=== PATIENT | male | born 1995 | race Caucasian/White ===

== ENCOUNTER 2018-05-23 20:32 | Emergency (ER) | payer OTHER, MEDICAID, SELFPAY ==
[2018-05-23 20:53] VITALS: BP 159/90; PULSE 64; RESP 18; TEMP 36.7; O2SAT 99
--- NOTE | 2018-05-23 21:32 | DI.RAD.S_ITS ---
PROCEDURE: XR CHEST 2V INDICATIONS: chest pain TECHNIQUE: 2 views of the chest were acquired. COMPARISON: formerly [facility], CHEST 2 VIEW, 10/17/2010, 15:03. formerly [facility], CHEST 2 VIEW, 02/27/2011, 14:06. FINDINGS: Surgical changes and devices: None. Lungs and pleura: No pleural effusions or pneumothorax. Lungs are clear. Mediastinum: Mediastinal contours are normal. Heart size is normal. Bones and chest wall: No suspicious bony abnormalities. Soft tissues appear unremarkable. IMPRESSION: No acute process. Dictated by: Sekou Magaña M.D. on 05/23/2018 at 21:56 Approved by: Sekou Magaña M.D. on 05/23/2018 at 21:56
[2018-05-23 21:59] LABS: Add Manual Diff / Slide Review NO; Basophils Percent Auto 0.7 % (0-2); Eosinophils Percent Auto 2.6 % (2-4); Hematocrit 42.2 % (41-53); Hemoglobin 14.7 g/dL (13.5-17.5); Lymphocytes Percent Auto 35.9 % (25-40); Mean Corpuscular HGB Conc 34.8 % (30-36); Mean Corpuscular Hemoglobin 31.3 PG (26-34); Mean Corpuscular Volume 89.9 fL (80-100); Monocytes Percent Auto 10.9 % (3-14); Neutrophils Absolute Auto 4000 /uL (3000-5900); Neutrophils Percent Auto 49.9 % (50-75); Platelet Count 313 X10^3/uL (150-400); Red Blood Cell Count 4.69 X10^6/uL (4.5-5.9); Red Cell Distribution Width 12.2 % (11.6-14.8); White Blood Cell Count 7.9 X10^3/uL (4.5-11.0)
[2018-05-23 22:04] LABS: Alanine Aminotransferase 39 IU/L (21-72); Albumin 4.7 g/dL (3.5-5.0); Albumin Globulin Ratio 1.8 (1.0-2.8); Alkaline Phosphatase 69 U/L (38-126); Aspartate Aminotransferase 28 IU/L (17-59); BUN Creatinine Ratio 21.1 (6-22); Bilirubin Total 0.4 mg/dL (0.2-1.3); Blood Urea Nitrogen 19 mg/dL (9-20); Calcium 9.6 mg/dL (8.4-10.2); Carbon Dioxide 28 mmol/L (22-32); Chloride 102 mmol/L (98-107); Creatine Kinase 142 U/L (55-170); Estimated Glomerular Filt Rate > 60.0 mL/min (>60); Globulin 2.6 g/dL (1.7-4.1); Glucose 96 mg/dL (70-100); HEMOLYSIS < 15 (0-50); Lipase 45 U/L (23-300); Potassium 4.1 mmol/L (3.4-5.1); Sodium 141 mmol/L (137-145); Total Protein 7.3 g/dL (6.3-8.2)
[2018-05-23 22:06] VITALS: BP 141/67; PULSE 58; RESP 18; O2SAT 100
[2018-05-23 22:19] LABS: CKMB % Relative Index 0.5 % (1.5-5.0)
[2018-05-23 22:21] LABS: Troponin I < 0.012 ng/mL (0.01-0.034)
--- NOTE | 2018-05-23 22:30 | ED_ITS ---
HPI - Chest Pain General Chief Complaint: Chest Pain Stated Complaint: CHEST PAIN Time Seen by Provider: 05/23/18 21:20 History of Present Illness HPI narrative: Patient is a 23-year-old male who presents with left chest pain ongoing for the last 6 months. He says it is off and on. No indication with exertion or rest. Not reproducible with movement. He was diagnosed by a walk- in clinic with acid reflux he has been taking ranitidine without any relief so he is no longer taking it. Tonight he said that he started having it again after he ate pizza his. He has no radiation of pain no shortness of breath. No longer has pain now. No family history of cardiac disease. MD complaint: chest pain Related Data Previous Rx's Medication Instructions Recorded omeprazole 20 mg PO DAILY #30 cap 05/23/18 Allergies Allergy/AdvReac Type Severity Reaction Status Date / Time venom-honey bee Allergy Unknown Unverified 01/21/18 13:04 [BEE VENOM (HONEY BEE)] Review of Systems Review of Systems All systems reviewed & are unremarkable except as noted in HPI and below Constitutional Denies chills, Denies fever(s), Denies lethargy and Denies weakness Cardiovascular Reports as per HPI, Denies dyspnea and Denies dyspnea on exertion Respiratory Denies cough, Denies dyspnea, Denies dyspnea on exertion and Denies wheezing Gastrointestinal Gastrointestinal: Denies abdominal pain, Denies change in bowel habits, Denies diarrhea, Denies nausea and Denies vomiting Musculoskeletal Denies back pain, Denies muscle weakness, Denies numbness and Denies tingling Integumentary/Breasts Denies pruritus, Denies erythema, Denies rash and Denies wounds Neurologic Denies numbness, Denies tingling and Denies weakness Hematologic/Lymphatic Denies easy bruising Allergic/Immunologic Denies wheezing PFSH Medical History GERD (gastroesophageal reflux disease) (Acute) Social History Smoking Status: Never smoker alcohol intake: current Comment: Family history noncontributory no cardiac disease Exam Initial Vital Signs Initial Vital Signs: Vital Signs Temperature 98.1 F 05/23/18 20:53 Pulse Rate 64 05/23/18 20:53 Respiratory Rate 18 05/23/18 20:53 Blood Pressure 159/90 H 05/23/18 20:53 Pulse Oximetry 99 05/23/18 20:53 GENERAL: Well-appearing, well-nourished and in no acute distress. HEENT: Head atraumatic,EOMI, pupils reactive, face symmetric, moist mucous membranes CARDIOVASCULAR: Regular rate and rhythm without murmurs, rubs or gallops. RESPIRATORY: Breath sounds equal bilaterally, no wheezes rales or rhonchi. ABDOMEN: Soft, nontender. Normoactive bowel sounds all 4 quadrants. No guarding or rebound. EXTREMITIES: Normal range of motion, no clubbing or edema. Neurovascularly intact NEUROLOGICAL: Alert and oriented x4.Normal gait and speech. SKIN: Warm, dry, no laceration, no petechiae, no rashes or lesions. Scores HEART Score Heart Score history: Slightly Suspicious Heart Score EKG: Normal Heart Score Age: < 45 years old Heart Score risk factors: No known risk factors Heart Score troponin: < or = to normal limit Heart Score Total: 0 PERC Score Age greater than or equal to 50 years: No Heart rate greater than or equal to 100 bpm: No Room Air O2 Sat less than 95%: No Unilateral leg swelling: No Recent trauma or surgery: No Hemoptysis: No Prior PE or DVT: No Hormone Use: No Total PERC Score: 0 Wells' Criteria for PE Clinical signs and symptoms of PE: No PE is #1 Dx or equally likely: No Heart rate > 100: No Immobilization at least 3 days or surg in previous 4 weeks: No History of PE or DVT: No Hemoptysis: No Malignancy w/Treatment within 6 months or palliative: No Wells' PE Score total: 0 Course Orders Ordered: ED Orders 05/23/18 21:31 EKG-12 Lead Stat 05/23/18 21:32 XR chest 2V Stat 05/23/18 21:38 Complete Blood Count AUTO DIFF Stat Comprehensive Metabolic Panel Stat Lipase Stat Troponin & CK Cardiac Panel Stat Discontinued Medications Sodium Chloride (Normal Saline 0.9%) 1,000 mls @ 150 mls/hr IV CONT MERCEDEZ Last Admin: 05/23/18 21:40 Dose: Vital Signs - 8 hr 05/23/18 20:53 05/23/18 22:06 05/23/18 22:34 Temperature 98.1 F Pulse Rate 64 58 L 68 Respiratory Rate 18 18 16 Blood Pressure 159/90 H Blood Pressure [Left Arm] 141/67 H 140/85 H Pulse Oximetry 99 100 100 MDM - Chest Pain Lab Data Attestation: I reviewed the patient's lab results. Result diagrams: 05/23/18 21:38 05/23/18 21:38 Lab Results 05/23/18 05/23/18 Range/Units 21:38 21:38 WBC 7.9 (4.5-11.0) X10^3/uL RBC 4.69 (4.5-5.9) X10^6/uL Hgb 14.7 (13.5-17.5) g/dL Hct 42.2 (41-53) % MCV 89.9 (80-100) fL MCH 31.3 (26-34) PG MCHC 34.8 (30-36) % RDW 12.2 (11.6-14.8) % Plt Count 313 (150-400) X10^3/uL Neut % (Auto) 49.9 L (50-75) % Lymph % (Auto) 35.9 (25-40) % [place] % (Auto) 10.9 (3-14) % Eos % (Auto) 2.6 (2-4) % Baso % (Auto) 0.7 (0-2) % Neut # (Auto) 4000 (0813-8571) /uL Sodium 141 (137-145) mmol/L Potassium 4.1 (3.4-5.1) mmol/L Chloride 102 (98-107) mmol/L Carbon Dioxide 28 (22-32) mmol/L BUN 19 (9-20) mg/dL Creatinine 0.90 (0.66-1.25) mg/dL Estimated GFR > 60.0 (>60) mL/min BUN/Creatinine Ratio 21.1 (6-22) Glucose 96 (70-100) mg/dL Calcium 9.6 (8.4-10.2) mg/dL Total Bilirubin 0.4 (0.2-1.3) mg/dL AST 28 (17-59) IU/L ALT 39 (21-72) IU/L Alkaline Phosphatase 69 (38-126) U/L Total Creatine Kinase 142 (55-170) U/L CK-MB (CK-2) 0.70 (<2.37) ng/mL CK-MB (CK-2) Rel Index 0.5 L (1.5-5.0) % Troponin I < 0.012 (0.01-0.034) ng/mL Total Protein 7.3 (6.3-8.2) g/dL Albumin 4.7 (3.5-5.0) g/dL Globulin 2.6 (1.7-4.1) g/dL Albumin/Globulin Ratio 1.8 (1.0-2.8) Lipase 45 (23-300) U/L Imaging Data Chest x-ray: Radiologist's impression: PROCEDURE: XR CHEST 2V INDICATIONS: chest pain TECHNIQUE: 2 views of the chest were acquired. COMPARISON: [facility], , CHEST 2 VIEW, 10/17/2010, 15:03. [facility], CHEST 2 VIEW, 02/27/2011, 14:06. FINDINGS: Surgical changes and devices: None. Lungs and pleura: No pleural effusions or pneumothorax. Lungs are clear. Mediastinum: Mediastinal contours are normal. Heart size is normal. Bones and chest wall: No suspicious bony abnormalities. Soft tissues appear unremarkable. IMPRESSION: No acute process. Dictated by: Sekou Magaña M.D. on 05/23/2018 at 21:56 ECG Data Attestation: I personally reviewed and interpreted this ECG as follows: Prior ECG tracings: not available for review Interpretation: Normal sinus rhythm with out any ST or T-wave changes is no priors to compare normal intervals MDM Narrative Medical decision making narrative: Patient has had no further chest pain. He has had chest pain off and on for number of months. It seems to be more at home rather than at work. Not consistent with cardiac disease. Low risk for PE. Discharge Plan Departure Patient Disposition: Home, Self-Care Clinical Impression: Atypical chest pain Discharge Date/Time: 05/23/18 22:39 Interventions: ED Discharge Assessment Last Done: 05/23/18 22:38 Instructions: DI for Atypical Chest Pain Activity Restrictions/Additional Instructions: *You have been diagnosed with atypical chest pain *What to do: Low risk for any cardiac disease. This may be related to acid reflux *Continue to take medications as directed Take omeprazole 30 min prior to meals once a day *Follow up with your primary care provider in 2-3 days *Return to ER if you should have change or worsening chest pain, shortness of breath or any new, worsening or concerning symptoms Prescriptions: New omeprazole 20 mg capsule,delayed release(DR/EC) 20 mg PO DAILY Qty: 30 RF: 0 Referrals: [facility] [Provider Group] [facility] [Provider Group] [facility] [Provider Group] Leyda Chadwick MD [Non-Staff] -
[2018-05-23 22:34] VITALS: BP 140/85; PULSE 68; RESP 16; O2SAT 100
== END 2018-05-23 22:39 | disposition home or self-care (01) ==
PROVIDERS: Emergency Provider Emergency Medicine
DX: R07.89 Other chest pain (principal)
CPT/HCPCS: 36415; 71046; 80053; 82550; 82553; 83690; 84484; 85025; 93005; 93010; 99283; 99285

== ENCOUNTER 2018-09-09 09:46 | Emergency (ER) | payer SELFPAY ==
[2018-09-09 09:47] VITALS: BP 149/80; PULSE 79; RESP 14; TEMP 36.4; O2SAT 100; BMI 30.3
--- NOTE | 2018-09-09 10:25 | DI.US.S_ITS ---
PROCEDURE: US SCROTUM INDICATIONS: right testicular pain TECHNIQUE: Real-time scanning was performed of the scrotum and testicles, with image documentation. Color and pulse Doppler interrogation was performed of both testicles. COMPARISON: None. FINDINGS: Right: Testicle is normal in size at 4.3 x 3 x 2.9 cm, and homogenous in echotexture. Epididymis is normal in overall size and morphology. There is a moderate right-sided hydrocele No varicoceles. Overlying scrotal skin is normal in thickness. Left: Testicle is normal in size at 4.6 x 2.4 x 3.5 cm, and homogeneous in echotexture. Epididymis is normal in overall size. There is a left epididymal cyst seen that measures up to 1.5 cm. No hydrocele or varicoceles. Overlying scrotal skin is normal in thickness. Doppler: Color and pulse Doppler demonstrate normal and symmetric arterial flow in both testicles. IMPRESSION: No acute testicular abnormality can be seen. No abnormal vascularity. Moderate right-sided hydrocele. Note: Concordant preliminary findings given by the outpatient admitting clerk upon the completion of the examination to Dr. Lyles at 11:30 AM [place] time on September 09, 2018. Dictated by: Soy Jones M.D. on 09/09/2018 at 10:44 Approved by: Soy Jones M.D. on 09/09/2018 at 10:46
--- NOTE | 2018-09-09 10:39 | ED.MALEGU ---
HPI - Male Genitourinary General Chief complaint: Urogenital-Male Stated complaint: testicle swollen Time Seen by Provider: 09/09/18 09:57 Source: patient Mode of arrival: ambulatory Limitations: no limitations History of Present Illness HPI Narrative: Patient is a 23-year-old male who presents with right testicular pain. Said it started yesterday noticed it was getting worse today. He thinks it is swollen. No penile discharge no history of STDs. He denies any injury. MD Complaint: testicle pain Location: right testicle Related Data Home Medications Medication Instructions Recorded Confirmed multivitamin 1 tab PO DAILY 09/09/18 09/09/18 Allergies Allergy/AdvReac Type Severity Reaction Status Date / Time venom-honey bee Allergy Unknown Verified 09/09/18 09:51 [BEE VENOM (HONEY BEE)] Review of Systems Review of Systems All systems reviewed & are unremarkable except as noted in HPI and below Constitutional Denies chills, Denies fever(s), Denies lethargy and Denies weakness Cardiovascular Denies chest pain, Denies irregular heart rhythm, Denies lightheadedness, Denies palpitations, Denies dyspnea, Denies dyspnea on exertion and Denies orthopnea Respiratory Denies cough, Denies dyspnea, Denies dyspnea on exertion and Denies wheezing Gastrointestinal Gastrointestinal: Denies abdominal pain, Denies change in bowel habits, Denies diarrhea, Denies nausea and Denies vomiting Musculoskeletal Denies back pain, Denies muscle weakness, Denies numbness and Denies tingling Integumentary/Breasts Denies pruritus, Denies erythema, Denies rash and Denies wounds Neurologic Denies numbness, Denies tingling and Denies weakness Endocrine Denies palpitations Allergic/Immunologic Denies wheezing [facility] Medical History GERD (gastroesophageal reflux disease) (Acute) Social History Smoking Status: Never smoker alcohol intake: current Exam Initial Vital Signs Initial Vital Signs: Vital Signs Temperature 97.6 F 09/09/18 09:47 Pulse Rate 79 09/09/18 09:47 Respiratory Rate 14 09/09/18 09:47 Blood Pressure 149/80 H 09/09/18 09:47 Pulse Oximetry 100 09/09/18 09:47 GENERAL: Well-appearing, well-nourished and in no acute distress. CARDIOVASCULAR: peripheral pulses in tact, cap refill <2 sec RESPIRATORY: No respiratory distress, speaks in full sentences without difficulty : Nurse Zee present for exam. Right mild testicular swelling no erythema no epididymis tenderness left testicle nontender and normal position. EXTREMITIES: Normal range of motion, no clubbing or edema. Neurovascularly intact NEUROLOGICAL: Cranial nerves II through XII grossly intact. Normal gait and speech. SKIN: Warm, dry, no petechiae, no rashes or lesions. Course Orders Ordered: ED Orders 09/09/18 10:03 Urine Chlamydia Gonorrhea PCR Stat 09/09/18 10:25 US scrotum Stat Vital Signs - 8 hr 09/09/18 09:47 09/09/18 12:08 Temperature 97.6 F Pulse Rate 79 59 L Respiratory Rate 14 18 Blood Pressure 149/80 H 128/67 Pulse Oximetry 100 99 MDM - Male Genitourinary Lab Data Lab Results 09/09/18 Range/Units 10:03 Ur Chlamydia DNA (PCR) Not detected N gonorrhoeae DNA (PCR) Not detected Urine Dip Bedside Urine Glucose Negative Bedside Urine Bilirubin - Negative Bedside Urine Ketone - Negative Urine Specific [place] 1.025 Bedside Urine Occult Blood - Negative Bedside Urine pH 6.0 Bedside Urine Protein - Negative Bedside Urine Urobilinogen - Negative Bedside Urine Nitrite - Negative Bedside Urine Leukocytes - Negative Esterase Imaging Data scrotal us: Radiologist's impression: [address] [address] Ultrasound Report Signed Patient: Jose Antonio Jhaveri RMR#: [id number] : 1995Acct:[id number] Age/Sex: 23 / MDate of Service: 09/09/18 Loc: ED Accession Number: [id number] Procedure: US scrotum Ordering Provider: Aysha Lyles D.O. PROCEDURE: US SCROTUM INDICATIONS: right testicular pain TECHNIQUE: Real-time scanning was performed of the scrotum and testicles, with image documentation. Color and pulse Doppler interrogation was performed of both testicles. COMPARISON: None. FINDINGS: Right: Testicle is normal in size at 4.3 x 3 x 2.9 cm, and homogenous in echotexture. Epididymis is normal in overall size and morphology. There is a moderate right-sided hydrocele No varicoceles. Overlying scrotal skin is normal in thickness. Left: Testicle is normal in size at 4.6 x 2.4 x 3.5 cm, and homogeneous in echotexture. Epididymis is normal in overall size. There is a left epididymal cyst seen that measures up to 1.5 cm. No hydrocele or varicoceles. Overlying scrotal skin is normal in thickness. Doppler: Color and pulse Doppler demonstrate normal and symmetric arterial flow in both testicles. IMPRESSION: No acute testicular abnormality can be seen. No abnormal vascularity. Moderate right-sided hydrocele. Note: Concordant preliminary findings given by the marketing communications manager upon the completion of the examination to Dr. Lyles at 11:30 AM [place] time on September 09, 2018. Dictated by: Soy Jones M.D. on 09/09/2018 at 10:44 Discharge Plan Departure Patient Disposition: Home Clinical Impression: Hydrocele, right Discharge Date/Time: 09/09/18 12:08 Interventions: ED Discharge Assessment Last Done: 09/09/18 12:08 Instructions: DI for Hydrocele-Adult Activity Restrictions/Additional Instructions: *You have been diagnosed with hydrocele *What to do: Were supportive underwear this swelling should resolve on its own *Continue to take medications as directed Motrin if needed for pain every 6-8 hours *Follow up with your primary care provider in 2-3 days *Return to ER if you should have increasing swelling, or pain or any new, worsening or concerning symptoms Prescriptions: No Action multivitamin Tablet,Chewable 1 tab PO DAILY RF: 0 Referrals: [facility] [Outside] [facility] [Outside] Leyda Chadwick MD [Non-Staff] -
--- NOTE | 2018-09-09 10:47 | ED_ITS ---
HPI - Male Genitourinary General Chief complaint: Urogenital-Male Stated complaint: testicle swollen Time Seen by Provider: 09/09/18 09:57 Source: patient Mode of arrival: ambulatory Limitations: no limitations History of Present Illness HPI Narrative: Patient is a 23-year-old male who presents with right testicular pain. Said it started yesterday noticed it was getting worse today. He thinks it is swollen. No penile discharge no history of STDs. He denies any injury. MD Complaint: testicle pain Location: right testicle Related Data Home Medications Medication Instructions Recorded Confirmed multivitamin 1 tab PO DAILY 09/09/18 09/09/18 Allergies Allergy/AdvReac Type Severity Reaction Status Date / Time venom-honey bee Allergy Unknown Verified 09/09/18 09:51 [BEE VENOM (HONEY BEE)] Review of Systems Review of Systems All systems reviewed & are unremarkable except as noted in HPI and below Constitutional Denies chills, Denies fever(s), Denies lethargy and Denies weakness Cardiovascular Denies chest pain, Denies irregular heart rhythm, Denies lightheadedness, Denies palpitations, Denies dyspnea, Denies dyspnea on exertion and Denies orthopnea Respiratory Denies cough, Denies dyspnea, Denies dyspnea on exertion and Denies wheezing Gastrointestinal Gastrointestinal: Denies abdominal pain, Denies change in bowel habits, Denies diarrhea, Denies nausea and Denies vomiting Musculoskeletal Denies back pain, Denies muscle weakness, Denies numbness and Denies tingling Integumentary/Breasts Denies pruritus, Denies erythema, Denies rash and Denies wounds Neurologic Denies numbness, Denies tingling and Denies weakness Endocrine Denies palpitations Allergic/Immunologic Denies wheezing [facility] Medical History GERD (gastroesophageal reflux disease) (Acute) Social History Smoking Status: Never smoker alcohol intake: current Exam Initial Vital Signs Initial Vital Signs: Vital Signs Temperature 97.6 F 09/09/18 09:47 Pulse Rate 79 09/09/18 09:47 Respiratory Rate 14 09/09/18 09:47 Blood Pressure 149/80 H 09/09/18 09:47 Pulse Oximetry 100 09/09/18 09:47 GENERAL: Well-appearing, well-nourished and in no acute distress. CARDIOVASCULAR: peripheral pulses in tact, cap refill <2 sec RESPIRATORY: No respiratory distress, speaks in full sentences without difficulty : Nurse Zee present for exam. Right mild testicular swelling no erythema no epididymis tenderness left testicle nontender and normal position. EXTREMITIES: Normal range of motion, no clubbing or edema. Neurovascularly intact NEUROLOGICAL: Cranial nerves II through XII grossly intact. Normal gait and speech. SKIN: Warm, dry, no petechiae, no rashes or lesions. Course Orders Ordered: ED Orders 09/09/18 10:03 Urine Chlamydia Gonorrhea PCR Stat 09/09/18 10:25 US scrotum Stat Vital Signs - 8 hr 09/09/18 09:47 09/09/18 12:08 Temperature 97.6 F Pulse Rate 79 59 L Respiratory Rate 14 18 Blood Pressure 149/80 H 128/67 Pulse Oximetry 100 99 MDM - Male Genitourinary Lab Data Lab Results 09/09/18 Range/Units 10:03 Ur Chlamydia DNA (PCR) Not detected N gonorrhoeae DNA (PCR) Not detected Urine Dip Bedside Urine Glucose Negative Bedside Urine Bilirubin - Negative Bedside Urine Ketone - Negative Urine Specific [place] 1.025 Bedside Urine Occult Blood - Negative Bedside Urine pH 6.0 Bedside Urine Protein - Negative Bedside Urine Urobilinogen - Negative Bedside Urine Nitrite - Negative Bedside Urine Leukocytes - Negative Esterase Imaging Data scrotal us: Radiologist's impression: [address] [address] Ultrasound Report Signed Patient: Jose Antonio Jhaveri RMR#: [id number] : 1995Acct:[id number] Age/Sex: 23 / MDate of Service: 09/09/18 Loc: ED Accession Number: [id number] Procedure: US scrotum Ordering Provider: Aysha Lyles D.O. PROCEDURE: US SCROTUM INDICATIONS: right testicular pain TECHNIQUE: Real-time scanning was performed of the scrotum and testicles, with image documentation. Color and pulse Doppler interrogation was performed of both testicles. COMPARISON: None. FINDINGS: Right: Testicle is normal in size at 4.3 x 3 x 2.9 cm, and homogenous in echotexture. Epididymis is normal in overall size and morphology. There is a moderate right- sided hydrocele No varicoceles. Overlying scrotal skin is normal in thickness. Left: Testicle is normal in size at 4.6 x 2.4 x 3.5 cm, and homogeneous in echotexture. Epididymis is normal in overall size. There is a left epididymal cyst seen that measures up to 1.5 cm. No hydrocele or varicoceles. Overlying scrotal skin is normal in thickness. Doppler: Color and pulse Doppler demonstrate normal and symmetric arterial flow in both testicles. IMPRESSION: No acute testicular abnormality can be seen. No abnormal vascularity. Moderate right-sided hydrocele. Note: Concordant preliminary findings given by the computer consultant upon the completion of the examination to Dr. Lyles at 11:30 AM [place] time on September 09, 2018. Dictated by: Soy Jones M.D. on 09/09/2018 at 10:44 Discharge Plan Departure Patient Disposition: Home Clinical Impression: Hydrocele, right Discharge Date/Time: 09/09/18 12:08 Interventions: ED Discharge Assessment Last Done: 09/09/18 12:08 Instructions: DI for Hydrocele-Adult Activity Restrictions/Additional Instructions: *You have been diagnosed with hydrocele *What to do: Were supportive underwear this swelling should resolve on its own *Continue to take medications as directed Motrin if needed for pain every 6-8 hours *Follow up with your primary care provider in 2-3 days *Return to ER if you should have increasing swelling, or pain or any new, worsening or concerning symptoms Prescriptions: No Action multivitamin Tablet,Chewable 1 tab PO DAILY RF: 0 Referrals: [facility] [Outside] [facility] [Outside] Leyda Chadwick MD [Non-Staff] -
[2018-09-09 11:46] LABS: Urine N gonorrhoeae NOT DETECTED
[2018-09-09 11:54] LABS: Urine Chlamydia NOT DETECTED
[2018-09-09 12:08] VITALS: BP 128/67; PULSE 59; RESP 18; O2SAT 99
== END 2018-09-09 12:08 | disposition home or self-care (01) ==
PROVIDERS: Emergency Provider Emergency Medicine
DX: N43.3 Hydrocele, unspecified (principal)
CPT/HCPCS: 76870; 81003; 87491; 87591; 99282; 99284

== ENCOUNTER → 2021-09-17 09:34 | Outpatient (CLI) | payer OTHER, SELFPAY ==
[2021-09-17 10:15] LABS: COVID19 -Nasal RAPID Negative (Negative)
== END ==
PROVIDERS: Visit Provider Nurse Practitioner Family
DX: Z20.822 Contact with and (suspected) exposure to COVID-19 (principal)
CPT/HCPCS: 87635

== ENCOUNTER 2022-03-05 17:52 | Emergency (ER) | payer SELFPAY ==
[2022-03-05 17:56] VITALS: BP 150/85; PULSE 100; RESP 22; TEMP 37.1; O2SAT 97
--- NOTE | 2022-03-05 18:00 | DI.RAD.S_ITS ---
PROCEDURE: XR CHEST 1V INDICATIONS: chest pain TECHNIQUE: One view of the chest was acquired. COMPARISON: [facility], CR, XR CHEST 2V, 05/23/2018, 21:13. FINDINGS: Surgical changes and devices: None. Lungs and pleura: Lungs are clear. No pleural effusions or pneumothorax. Mediastinum: Mediastinal contours appear normal. Heart size is normal. Bones and chest wall: No suspicious bony lesions. Overlying soft tissues appear unremarkable. IMPRESSION: No evidence acute pulmonary process. Dictated by: Mohinder Tucker M.D. on 03/05/2022 at 18:21 Approved by: Mohinder Tucker M.D. on 03/05/2022 at 18:21
--- NOTE | 2022-03-05 18:14 | ED_ITS ---
HPI - Chest Pain General Chief Complaint: Chest Pain Stated Complaint: cp, shoulder pain, back pain Time Seen by Provider: 03/05/22 18:06 Source: patient Mode of arrival: Ambulatory History of Present Illness HPI narrative: 26-year-old male former smoker with noncontributory medical history presents with a chief complaint of episodes of left chest and shoulder pain and then going on and off for many months. He denies any specific pattern or obvious provocation or palliation. He states that when the symptoms are present they may last a few seconds or a few minutes. Sometimes he goes days between episodes. He denies any exertional component and states that he can exercise or exert himself without any difficulty whatsoever. He denies dizziness or lightheadedness. He has no shortness of breath, cough nor nausea or vomiting. He is not currently having pain. He states he thinks it might happen more often when he feels particularly stressed or anxious Related Data Home Medications Medication Instructions Recorded Confirmed multivitamin 1 tab PO DAILY 09/09/18 09/17/21 Allergies Allergy/AdvReac Type Severity Reaction Status Date / Time venom-honey bee Allergy Unknown Verified 09/17/21 09:33 [BEE VENOM (HONEY BEE)] Review of Systems Review of Systems Narrative: GENERAL: Denies chills, fatigue, malaise, fever, sweats. HEENT: Denies sinus pain, ear pain, sore throat, difficulty swallowing, dizziness. RESPIRATORY: Denies dyspnea, cough, wheezing, hemoptysis, sputum. CARDIOVASCULAR: See HPI GASTROINTESTINAL: Denies nausea, vomiting, abdominal pain, diarrhea, constipation, melena. : Denies dysuria, frequency, incontinence, hematuria, urinary retention. MUSCULOSKELETAL: denies weakness, joint pain, or bony pain SKIN: Denies rash, skin lesions, or other NEUROLOGIC: Denies weakness, headache, numbness, change in speech, confusion, seizures, incoordination. PSYCHIATRIC: No concerning psychosocial issues. 12 point review of systems is negative except for those stated above Patient History Medical History (Updated 03/05/22 @ 19:46 by Jose A Cummings DO) GERD (gastroesophageal reflux disease) Social History Smoking Status: Former smoker alcohol intake: current Smoking Status: Former smoker alcohol intake frequency: a few times a week Substance Use Type: marijuana Exam Narrative Exam Narrative: GENERAL: [26] year old patient appears stated age. Well-developed patient, in mild distress. HEAD: Atraumatic. Normocephalic. EYES: Pupils equal round and reactive. Extraocular motions intact. No scleral icterus. No injection or drainage. ENT: Nose without bleeding, purulent drainage. Throat without erythema, tonsillar hypertrophy or exudate. Airway patent. NECK: Trachea midline. Non tender CARDIOVASCULAR: Regular rate and rhythm without murmurs, gallops, or rubs. RESPIRATORY: Clear to auscultation. Breath sounds equal bilaterally. No wheezes, rales, or rhonchi. GASTROINTESTINAL: Abdomen soft, non-tender, nondistended. EXTREMITIES: No edema or joint tenderness. BACK: Nontender without deformity or crepitance. No flank tenderness. NEURO: AOx3. SKIN: No rash or erythema of visible areas Initial Vital Signs Initial Vital Signs: Vital Signs Temperature 98.7 F 03/05/22 17:56 Pulse Rate 100 H 03/05/22 17:56 Respiratory Rate 22 03/05/22 17:56 Blood Pressure 150/85 H 03/05/22 17:56 Pulse Oximetry 97 03/05/22 17:56 Scores HEART Score Heart Score history: Slightly Suspicious Heart Score EKG: Normal Heart Score Age: < 45 years old Heart Score risk factors: No known risk factors Heart Score troponin: < or = to normal limit Heart Score Total: 0 Wells' Criteria for PE Clinical signs and symptoms of DVT: No PE is #1 Dx or equally likely: No Heart rate > 100: No Immobilization at least 3 days or surg in previous 4 weeks: No History of PE or DVT: No Hemoptysis: No Malignancy w/Treatment within 6 months or palliative: No Wells' PE Score total: 0 Course Orders Ordered: ED Orders 03/05/22 18:00 XR chest 1V Stat EKG-12 Lead Stat 03/05/22 18:05 Complete Blood Count AUTO DIFF Stat Comprehensive Metabolic Panel Stat Lipase Stat Magnesium Stat Troponin & CK Cardiac Panel Stat 03/05/22 19:44 ESR [Erythrocyte Sedimentation Rate] Stat Vital Signs Vital signs: Vital Signs - 8 hr 03/05/22 17:56 03/05/22 19:52 Temperature 98.7 F Pulse Rate 100 H 83 Respiratory Rate 22 16 Blood Pressure 150/85 H 136/76 Pulse Oximetry 97 97 MDM - Chest Pain Lab Data Result diagrams: 03/05/22 18:05 03/05/22 18:05 Labs: Lab Results 03/05/22 03/05/22 03/05/22 Range/Units 18:05 18:05 18:05 WBC 10.1 (4.5-11.0) X10^3/uL RBC 4.77 (4.5-5.9) X10^6/uL Hgb 14.8 (13.5-17.5) g/dL Hct 41.7 (41-53) % MCV 87.4 (80-100) fL MCH 30.9 (26-34) PG MCHC 35.4 (30-36) % RDW 12.1 (11.6-14.8) % Plt Count 323 (150-400) X10^3/uL Neut % (Auto) 71.7 (50-75) % Lymph % (Auto) 14.9 L (25-40) % Crockett % (Auto) 12.1 (3-14) % Eos % (Auto) 0.9 L (2-4) % Baso % (Auto) 0.4 (0-2) % Neut # (Auto) 7200 H (1784-2746) /uL Lymph # (Auto) 1500 (4776-6889) /uL Crockett # (Auto) 1200 H (0-900) /uL Eos # (Auto) 100 (0-450) /uL Baso # (Auto) 0 (0-100) /uL ESR 15 (0-15) MM/HR Sodium 139 (137-145) mmol/L Potassium 3.7 (3.4-5.1) mmol/L Chloride 101 (98-107) mmol/L Carbon Dioxide 28 (22-32) mmol/L BUN 13 (9-20) mg/dL Creatinine 1.02 (0.66-1.25) mg/dL Estimated GFR > 60 (>60) mL/min BUN/Creatinine Ratio 12.7 (6-22) Glucose 110 H (70-100) mg/dL Calcium 9.0 (8.4-10.2) mg/dL Magnesium 2.1 (1.6-2.3) mg/dL Total Bilirubin 0.4 (0.2-1.3) mg/dL AST 27 (17-59) IU/L ALT 30 (<50) IU/L Alkaline Phosphatase 84 (38-126) U/L Total Creatine Kinase 93 (55-170) U/L CK-MB (CK-2) TNP CK-MB (CK-2) Rel Index TNP Troponin I < 0.012 (0.01-0.034) ng/mL Total Protein 8.2 (6.3-8.2) g/dL Albumin 5.0 (3.5-5.0) g/dL Globulin 3.2 (1.7-4.1) g/dL Albumin/Globulin Ratio 1.6 (1.0-2.8) Lipase 63 (23-300) U/L Imaging Data Chest x-ray: Radiologist's Impression: Close Chest X-Ray (Signed) Mohinder Tucker - 03/05/22 [place] [facility] (Signed) Soy Jones - 09/09/18 Chest X-Ray (Signed) Sekou Magaña - 05/23/18 [facility] [address] XRay Report Signed Patient: Jose Antonio Jhaveri MR#: [id number] : 1995 Acct:[id number] Age/Sex: 26 / M Date of Service: 03/05/22 Loc: Accession Number: [id number] ?? Procedure: XR chest 1V Ordering Provider: Melissa Hood MD PROCEDURE:? XR CHEST 1V ? INDICATIONS:? chest pain ? TECHNIQUE:? One view of the chest was acquired.? ? COMPARISON:? [facility], , XR CHEST 2V, 05/23/2018, 21:13. ? FINDINGS:? ? Surgical changes and devices:? None.? ? Lungs and pleura:? Lungs are clear.? No pleural effusions or pneumothorax.? ? Mediastinum:? Mediastinal contours appear normal.? Heart size is normal.? ? Bones and chest wall:? No suspicious bony lesions.? Overlying soft tissues appear unremarkable.? ? IMPRESSION:? No evidence acute pulmonary process. ? ? ? Dictated by: Mohinder Tucker M.D. on 03/05/2022 at 18:21 ? ? Approved by: Mohinder Tucker M.D. on 03/05/2022 at 18:21 ? ECG Data Interpretation: EKG is normal sinus rhythm rate [ 87] and free of any signs of ischemia or ectopy. No ST segmental elevation or depression. No T wave inversions MDM Narrative Medical decision making narrative: Multiple causes of chest pain considered including [place], PE, pneumothorax, pneumonia, aortic dissection, and pleurisy. Patient reports no radiation, no diaphoresis, no provocation with exertion, and no vomiting. Heart score is low and would suggest patient is appropriate for discharge. Pulmonary embolism also considered but wells and PERC would suggest a very low probability. Other considerations would include musculoskeletal with spasm or inflammation among others. Patient overall has a very reassuring history and physical exam. Questions have been answered to his apparent satisfaction and return precautions have been discussed at length Discharge Plan Departure Patient Disposition: Home Clinical Impression: Atypical chest pain Instructions: DI for Atypical Chest Pain Activity Restrictions/Additional Instructions: *You have been diagnosed with [atypical chest pain]. There is no evidence of heart attack, blood clot, collapsed lung or other significant and life- threatening diagnosis that would require a specific or immediate treatment *What to do: *Please continue to take your regular medications as directed. [ ] New medication prescriptions sent to your pharmacy: [ ] [ ] New medication written as a paper prescription [ x] No new medications given *Please follow up with your primary care provider in 2-3 days, call for an appointment. Let them know you were seen in the Emergency Department and that we ask that you be seen in follow up. We will electronically transmit a record of today's note if your PCP is in our system *If you do not have a primary care provider please contact the [facility] Resource line at [phone]. They will ask some questions about your medical history and help get you set up with a doctor in the community. *Return to Emergency Department if you should have any new, worsening or concerning symptoms, such as [fever greater than 101 F, shaking chills, worsening pain, persistent vomiting or other bothersome symptoms] Prescriptions: No Action multivitamin Tablet,Chewable 1 tab PO DAILY 0RF
[2022-03-05 18:25] LABS: Add Manual Diff / Slide Review NO; Basophils Absolute Auto 0 /uL (0-100); Basophils Percent Auto 0.4 % (0-2); Eosinophils Absolute Auto 100 /uL (0-450); Eosinophils Percent Auto 0.9 % (2-4); Hematocrit 41.7 % (41-53); Hemoglobin 14.8 g/dL (13.5-17.5); Lymphocytes Absolute Auto 1500 /uL (1100-4500); Lymphocytes Percent Auto 14.9 % (25-40); Mean Corpuscular HGB Conc 35.4 % (30-36); Mean Corpuscular Hemoglobin 30.9 PG (26-34); Mean Corpuscular Volume 87.4 fL (80-100); Monocytes Absolute Auto 1200 /uL (0-900); Monocytes Percent Auto 12.1 % (3-14); Neutrophils Absolute Auto 7200 /uL (1500-7000); Neutrophils Percent Auto 71.7 % (50-75); Platelet Count 323 X10^3/uL (150-400); Red Blood Cell Count 4.77 X10^6/uL (4.5-5.9); Red Cell Distribution Width 12.1 % (11.6-14.8); White Blood Cell Count 10.1 X10^3/uL (4.5-11.0)
[2022-03-05 18:39] LABS: Alanine Aminotransferase 30 IU/L (<50); Albumin Globulin Ratio 1.6 (1.0-2.8); Alkaline Phosphatase 84 U/L (38-126); Aspartate Aminotransferase 27 IU/L (17-59); BUN Creatinine Ratio 12.7 (6-22); Bilirubin Total 0.4 mg/dL (0.2-1.3); Blood Urea Nitrogen 13 mg/dL (9-20); Carbon Dioxide 28 mmol/L (22-32); Chloride 101 mmol/L (98-107); Creatine Kinase 93 U/L (55-170); Estimated Glomerular Filt Rate > 60 mL/min (>60); Globulin 3.2 g/dL (1.7-4.1); Glucose 110 mg/dL (70-100); HEMOLYSIS 18 (0-50); Lipase 63 U/L (23-300); Magnesium 2.1 mg/dL (1.6-2.3); Potassium 3.7 mmol/L (3.4-5.1); Sodium 139 mmol/L (137-145); Total Protein 8.2 g/dL (6.3-8.2)
[2022-03-05 18:52] LABS: Troponin I < 0.012 ng/mL (0.01-0.034)
[2022-03-05 19:52] VITALS: BP 136/76; PULSE 83; RESP 16; O2SAT 97
[2022-03-05 20:07] VITALS: BP 128/79; PULSE 89; RESP 18; O2SAT 99
[2022-03-05 21:03] LABS: Erythrocyte Sedimentation Rate 15 MM/HR (0-15)
== END 2022-03-05 20:07 | disposition home or self-care (01) ==
PROVIDERS: Emergency Medicine; Emergency Provider Emergency Medicine
DX: R07.89 Other chest pain (principal)
CPT/HCPCS: 71045; 80053; 82550; 83690; 83735; 84484; 85025; 85651; 93005; 99283